=== PATIENT | female | born 1990 | race Two or more races ===

== ENCOUNTER 2024-04-18 18:34 | Emergency (ER) | payer BC ==
[~2024-04-18] VITALS: Ht 152.4 cm; Wt 63.0 kg
[2024-04-18 18:40] VITALS: TEMP 98.3; O2SAT 98
[2024-04-18] MEDS: ONDANSETRON HCL 4MG/2ML INJ IV ONE (20:16)
[2024-04-18] MEDS: SODIUM CHLORIDE 0.9% 1,000 ML IV ONE (20:17)
[2024-04-18] MEDS: ACETAMINOPHEN 325MG TABLET PO PRN (20:18)
[2024-04-18 20:26] LABS: CLARITY URINE CLOUDY (CLEAR); COLOR URINE YELLOW (YELLOW); GLUCOSE URINE NEGATIVE (NEGATIVE); KETONES URINE NEGATIVE (NEGATIVE); LEUKOCYTE ESTERASE URINE 1+ (NEGATIVE); NITRITE URINE NEGATIVE (NEGATIVE); OCCULT BLOOD URINE 3+ (NEGATIVE); PH URINE 6.5 (4.5-8.0); PROTEIN URINE 4+ (NEGATIVE); SPECIFIC GRAVITY URINE 1.023 (1.005-1.030); UROBILINOGEN URINE 0.2 E.U./dL (0.2-1.0)
[2024-04-18 20:35] LABS: BACTERIA URINE 2+; RBC URINE TNTC /hpf (0-2); SQUAMOUS EPITHELIAL CELL URINE 1+ /lpf (RARE/1+)
[2024-04-18 20:45] LABS: BASOPHILS % 0.1 % (0.0-2.0); EOSINOPHILS % 0.8 % (0.0-5.0); HEMATOCRIT. 35.5 % (36.0-48.0); HEMOGLOBIN. 12.1 g/dL (12.0-16.0); LYMPHOCYTES % 7.5 % (20.0-50.0); MEAN CORPUSCULAR HEMOGLOBIN 31.1 pg (28.0-32.0); MEAN CORPUSCULAR HGB CONC 33.9 g/dL (31.0-37.0); MEAN CORPUSCULAR VOLUME 91.6 fL (81.0-99.0); MEAN PLATELET VOLUME 8.9 fl (7.4-10.4); MONOCYTES % 4.1 % (2.0-8.0); NEUTROPHILS % 87.5 % (40.0-76.0); PLATELET 235 x1000/uL (130-400); RED BLOOD CELL COUNT 3.88 mill/uL (4.2-5.4); RED CELL DISTRIBUTION WIDTH 12.8 % (11.6-14.6); WHITE BLOOD COUNT 11.8 x1000/uL (4.5-11.0)
[2024-04-18 20:58] LABS: INR 0.9; PROTHROMBIN TIME 10.6 sec (9.6-11.0)
[2024-04-18 21:21] LABS: CHLORIDE 108 mEq/L (98-107); POTASSIUM 3.2 mEq/L (3.5-5.1); SODIUM 140 mEq/L (136-145)
[2024-04-18 21:22] LABS: CARBON DIOXIDE 24 mEq/L (21-32)
[2024-04-18 21:23] LABS: CALCIUM 9.9 mg/dL (8.7-10.4)
[2024-04-18 21:27] LABS: CREATININE 0.9 mg/dL (0.6-1.0); GLUCOSE 104 mg/dL (70-105); UREA NITROGEN BLOOD 10 mg/dL (9-23)
[2024-04-19] VITALS: BP 114/62; PULSE 92; RESP 17; O2SAT 99
== END 2024-04-19 00:13 | disposition home or self-care (01) ==
LOC: ER 18:34
DX: O03.9 Complete or unspecified spontaneous abortion without complication (principal); O99.111 Other diseases of the blood and blood-forming organs and certain disorders involving the immune mechanism complicating pregnancy, first trimester; Z3A.13 13 weeks gestation of pregnancy
CPT/HCPCS: 80048; 81003; 81025; 84702; 85025; 85610; 86850; 86870; 86900; 86901; 36415; 88305; 76801; 76817; 96361; 96374; 99285; J2405; J7030; Z7610